=== PATIENT | female | born 1965 | race American Indian/Alaskan Native ===

== ENCOUNTER 2018-09-02 15:56 | Emergency (ER) | payer BC ==
[2018-09-02 15:59] VITALS: BMI 25.1
[2018-09-02] MEDS ORDERED: Sodium Chloride 0.9% 1,000 ML IV STA (16:27)
--- NOTE | 2018-09-02 16:57 | ED PDOC ---
Arrival/HPI - General Chief Complaint: Flu-like Symptoms Time Seen by Provider: 09/02/18 16:06 Historian: Patient - History of Present Illness Narrative History of Present Illness (Text): 09/02/18 16:20 53 year old female, whose past medical history includes pituitary tumor and hepatic cyst, presents to the emergency department complaining of fatigue, vomiting, myalgia and flu-like symptoms for the past 4 days. Patient day began to have back pain that progressively worsened to body aches. Patient then began having a productive cough with brownish/white sputum. Patient denies any blood in the sputum. She reports 3 episodes of vomiting. Patient reports sick contact at work where 2 people had the flu and states she did not get the flu shot. Patient was seen and discharged at [facility] yesterday with antinausea medication and pain medication with no relief. Patient reports she feels feverish, chills, nausea, cough, and chest pain after cough, but denies any shortness of breath, diarrhea, urinary symptoms, back pain, neck pain, headache, dizziness, or any other complaints. PMD: Dr. Puckett Time/Duration: Other (4 days) Symptom Onset: Gradual Symptom Course: Unchanged Activities at Onset: Light Context: Home Past Medical History - Provider Review Nursing Documentation Reviewed: Yes - Infectious Disease Hx of Infectious Diseases: None - Tetanus Immunization Tetanus Immunization: Unknown - Endocrine/Metabolic Hx Endocrine Disorders: Yes (benign Pituitary tumor) - Hematological/Oncological Hx Cancer: Yes (PITUITARY TUMOR) - Musculoskeletal/Rheumatological Hx Falls: No - Psychiatric Hx Depression: Yes Hx Substance Use: No - Surgical History Hx Appendectomy: Yes Hx Section: Yes (x 2) - Anesthesia Hx Anesthesia: Yes Hx Anesthesia Reactions: No Hx Malignant Hyperthermia: No - Suicidal Assessment Feels Threatened In Home Enviroment: No Family/Social History - Physician Review Nursing Documentation Reviewed: Yes Family/Social History: No Known Family HX Smoking Status: Former Smoker Hx Alcohol Use: No Hx Substance Use: No Hx Substance Use Treatment: No Allergies/Home Meds Allergies/Adverse Reactions: Allergies No Known Allergies Allergy (Verified 02/23/18 12:06) per patient Review of Systems - Physician Review All systems were reviewed & negative as marked: Yes - Review of Systems Constitutional: Fatigue, Fevers, Other (Chills) Respiratory: Cough. absent: SOB Cardiovascular: Chest Pain (worse with cough ) Gastrointestinal: Nausea, Vomiting. absent: Constipation, Diarrhea Genitourinary Female: absent: Dysuria, Frequency, Hematuria Musculoskeletal: Myalgias. absent: Back Pain, Neck Pain Neurological: absent: Headache, Dizziness Physical Exam - Physical Exam Narrative Physical Exam (Text): Gen: VS reviewed, alert, well developed, well nourished, nontoxic, mild distress. ENT: Dry mucus membranes. Erythema to the back of the throat. No exudates Eye: EOMI, PERRL. Neck: no JVD, supple, no adenopathy. CV: regular rate, regular rhythm, no rubs, no murmur, no gallops, S1, S2, pulses equal and strong. Pulm: Rales to the left lower lobe posteriorly, no distress, clear to auscultation, no wheeze, no rhonchi. Abd: soft, nontender, no guarding, no rebound, no rigidity, normal bowel sounds. Ext: no edema. Skin: good color, no rash, no cyanosis. Psych: responds appropriately to questions, normal affect. Neuro: oriented x 3, CN2-12 intact grossly, motor intact, sensation intact. Vital Signs Reviewed: Yes Vital Signs Temp Pulse Resp BP Pulse Ox 09/02/18 15:59 99.4 F 69 16 121/74 96 Temperature: Afebrile Blood Pressure: Normal Pulse: Regular Respiratory Rate: Normal Medical Decision Making ED Course and Treatment: 09/02/18 16:20 Impression: 53 year old female presents complaining of fatigue, nausea, vomiting, myalgia, cough, and flu-like symptoms for the past 4 days. Plan: -- EKG -- Labs -- Chest X-ray -- Zofran Inj, IV Fluid -- Reassess and disposition Progress Notes: 09/02/18 19:04 On re-evaluation, patient is in no acute distress. I have discussed the results and plan with the patient, who expresses understanding. Patient in agreement with plan to be discharged home with prescription for Motrin. Patient is stable for discharge. Patient was instructed to follow up with physician or return if symptoms worsen or new concerning symptoms arise. - Lab Interpretations I have reviewed the lab results: Yes - RAD Interpretation Narrative RAD Interpretations (Text): PROCEDURE: Chest X-ray Dictator : Chano Forbes MD Report Date : 09/02/2018 18:00:09 IMPRESSION: No active disease. Radiology Orders: 09/02/18 16:27 CXR [CHEST TWO VIEWS (PA/LAT)] [RAD] Stat Fur Joiner: Radiologist - EKG Interpretation EKG Interpretation (Text): 09/02/18 16:27 Sinus Bradycardia @ 56, nml qrs, nml axis, LVH, Interpreted by me. Interpreted by ED Physician: Yes Type: 12 lead EKG - Medication Orders Current Medication Orders: Sodium Chloride (Sodium Chloride 0.9%) 1,000 mls @ 999 mls/hr IV .Q1H1M STA Stop: 09/02/18 17:27 Discontinued Medications Ondansetron HCl (Zofran Inj) 4 mg IVP STAT STA Stop: 09/02/18 16:28 - Scribe Statement The provider has reviewed the documentation as recorded by the Hussain De Santiago Provider Scribe Attestation: All medical record entries made by the Scribe were at my direction and personally dictated by me. I have reviewed the chart and agree that the record accurately reflects my personal performance of the history, physical exam, medical decision making, and the department course for this patient. I have also personally directed, reviewed, and agree with the discharge instructions and disposition. Disposition/Present on Arrival - Present on Arrival Any Indicators Present on Arrival: No History of DVT/PE: No History of Uncontrolled Diabetes: No Urinary Catheter: No History of Decub. Ulcer: No History Surgical Site Infection Following: None - Disposition Have Diagnosis and Disposition been Completed?: Yes Diagnosis: Viral syndrome Disposition: HOME/ ROUTINE Disposition Time: 19:04 Patient Plan: Discharge Patient Problems: Current Active Problems Problem Status Onset Viral syndrome Acute Condition: STABLE Discharge Instructions (ExitCare): Viral Syndrome (DC) Additional Instructions: stay well hydrated (water). return for any new or worsening symptoms. follow up with your primary care doctor. Prescriptions: Ibuprofen [Motrin Tab] 600 mg PO QID #42 tab Ondansetron [Zofran] 4 mg PO Q8H #12 tab Forms: [facility] (Liberian), WORK NOTE
[2018-09-02 17:21] LABS: BASO # 0.01 K/mm3 (0.0-2.0); BASO % 0.3 % (0.0-3.0); GRAN # 1.4 (1.4-6.5); GRAN % 45.6 % (50.0-68.0); HEMOGLOBIN 11.8 g/dL (12.0-16.0); LYMPH # 1.4 (1.2-3.4); MEAN CELL VOLUME 88.7 fl (80.0-105.0); MEAN CORPUSCULAR HGB CONC 32.7 g/dl (31.0-37.0); MONO # 0.3 (0.1-0.6); MONO % 9.1 % (1.0-6.0); RBC 4.07 10^6/uL (3.5-6.1); RED CELL DISTRIBUTION WIDTH 13.3 % (11.5-14.5); WHITE BLOOD COUNT 3.1 10^3/uL (4.5-11.0)
[2018-09-02 17:33] LABS: ALB/GLOB RATIO 1.3 (1.1-1.8); ALBUMIN 4.1 g/dL (3.0-4.8); ALT/SGPT 34 U/L (7-56); AST/SGOT 42 U/L (14-36); BLOOD UREA NITROGEN 12 mg/dL (7-21); CALCIUM 9.3 mg/dL (8.4-10.5); GFR NON-AFRICAN AMERICAN > 60
--- NOTE | 2018-09-02 18:04 | RAD ---
Date of service: 09/02/2018 HISTORY: cough, pneumonia COMPARISON: 06/18/2014 TECHNIQUE: Chest PA and lateral FINDINGS: LUNGS: No active pulmonary disease. PLEURA: No significant pleural effusion identified. No pneumothorax apparent. CARDIOVASCULAR: No aortic atherosclerotic calcification present. Normal cardiac size. No pulmonary vascular congestion. OSSEOUS STRUCTURES: No significant abnormalities. VISUALIZED UPPER ABDOMEN: Normal. OTHER FINDINGS: None. IMPRESSION: No active disease.
[2018-09-02 19:24] VITALS: BP 127/84; PULSE 75; RESP 18; TEMP 98.8; O2SAT 100
--- NOTE | 2018-09-03 09:56 | CARD ---
APPROVED REPORT Date of service: 09/02/2018 EKG Measurement Heart [id number] CT 162P78 [id number] <Conclusion> Sinus bradycardia Septal infarct, age undetermined Abnormal ECG
== END 2018-09-02 19:21 | disposition home or self-care (01) ==
LOC: ED 15:56
DX: B34.9 Viral infection, unspecified (principal); Z87.891 Personal history of nicotine dependence
CPT/HCPCS: 71046; 80053; 85025; 93005; 96361; 96374; 99283; J2405; J7030

== ENCOUNTER 2018-09-06 14:47 | Inpatient (IN) | payer BC ==
[2018-09-06 14:51] VITALS: BMI 21.7
[2018-09-06] MEDS ORDERED: Sodium Chloride 0.9% 1,000 ML IV STA (15:47)
--- NOTE | 2018-09-06 17:12 | RAD ---
Date of service: 09/06/2018 HISTORY: cough r/o infiltrate COMPARISON: Chest radiograph dated 09/02/2018 FINDINGS: LUNGS: Lingular infiltrate. PLEURA: No significant pleural effusion identified, no pneumothorax apparent. CARDIOVASCULAR: No aortic atherosclerotic calcification present. Normal cardiac size. No pulmonary vascular congestion. OSSEOUS STRUCTURES: Unchanged. VISUALIZED UPPER ABDOMEN: Normal. OTHER FINDINGS: None. IMPRESSION: Lingula infiltrate.
[2018-09-06 17:18] LABS: BASO # 0.02 K/mm3 (0.0-2.0); BASO % 0.4 % (0.0-3.0); EOS # 0.1 (0.0-0.7); EOS % 1.8 % (1.5-5.0); GRAN # 1.89 (1.4-6.5); GRAN % 38.9 % (50.0-68.0); HEMOGLOBIN 11.9 g/dL (12.0-16.0); LYMPH # 2.3 (1.2-3.4); MEAN CELL VOLUME 87.5 fl (80.0-105.0); MEAN CORPUSCULAR HEMOGLOBIN 29.2 pg (25.0-35.0); MEAN CORPUSCULAR HGB CONC 33.3 g/dl (31.0-37.0); MEAN PLATELET VOLUME 9.4 fl (7.0-11.0); MONO # 0.6 (0.1-0.6); MONO % 11.9 % (1.0-6.0); RBC 4.08 10^6/uL (3.5-6.1); RED CELL DISTRIBUTION WIDTH 12.7 % (11.5-14.5); WHITE BLOOD COUNT 4.9 10^3/uL (4.5-11.0)
[2018-09-06 17:34] LABS: ALB/GLOB RATIO 1.2 (1.1-1.8); ALBUMIN 4.4 g/dL (3.0-4.8); ALT/SGPT 26 U/L (7-56); AST/SGOT 58 U/L (14-36); BLOOD UREA NITROGEN 12 mg/dL (7-21); GFR NON-AFRICAN AMERICAN > 60
[2018-09-06 17:40] LABS: TROPONIN I < 0.01 ng/mL
[2018-09-06] MEDS ORDERED: Azithromycin 250 MG in Sodium Chloride 0.9% 250 ML IVPB STA (18:02)
--- NOTE | 2018-09-06 19:14 | ED PDOC ---
Arrival/HPI - General Chief Complaint: Cough, Cold, Congestion Time Seen by Provider: 09/06/18 15:05 Historian: Patient - History of Present Illness Narrative History of Present Illness (Text): 09/06/18 19:14 A 53 year old female, whose past medical history includes pituitary tumor, sent by PMD to the emergency department for nausea/vomiting/cough/fever. Patient states she was at another hospital and was discharged. Patient notes also having decreased PO intake, however denies any diarrhea, or any other complaints at this time. Denies any recent travel. PMD: Dr. Puckett Past Medical History - Provider Review Nursing Documentation Reviewed: Yes - Infectious Disease Hx of Infectious Diseases: None - Tetanus Immunization Tetanus Immunization: Unknown - Reproductive Menopause: Yes - Cardiac Hx Cardiac Disorders: No - Neurological Hx Neurological Disorder: No - Endocrine/Metabolic Hx Endocrine Disorders: Yes (benign Pituitary tumor) - Hematological/Oncological Hx Cancer: Yes (PITUITARY TUMOR) - Musculoskeletal/Rheumatological Hx Falls: No - Psychiatric Hx Depression: Yes Hx Substance Use: No - Surgical History Hx Section: Yes (x 2) - Anesthesia Hx Anesthesia Reactions: No Hx Malignant Hyperthermia: No - Suicidal Assessment Feels Threatened In Home Enviroment: No Family/Social History - Physician Review Nursing Documentation Reviewed: Yes Family/Social History: No Known Family HX Smoking Status: Former Smoker Hx Alcohol Use: No Hx Substance Use: No Hx Substance Use Treatment: No Allergies/Home Meds Allergies/Adverse Reactions: Allergies No Known Allergies Allergy (Verified 02/23/18 12:06) per patient Review of Systems - Physician Review All systems were reviewed & negative as marked: Yes - Review of Systems Constitutional: Fevers Respiratory: Cough Gastrointestinal: Nausea, Vomiting, Appetite Changes (decreased PO intake). absent: Diarrhea Physical Exam Vital Signs Reviewed: Yes Vital Signs Temp Pulse Resp BP Pulse Ox 09/06/18 14:49 98.2 F 74 18 112/75 98 Temperature: Afebrile Blood Pressure: Normal Pulse: Regular Respiratory Rate: Normal Appearance: Positive for: Well-Appearing, Non-Toxic, Comfortable Pain Distress: None Mental Status: Positive for: Alert and Oriented X 3 - Systems Exam Head: Present: Atraumatic, Normocephalic Pupils: Present: PERRL Extroacular Muscles: Present: EOMI Conjunctiva: Present: Normal Mouth: Present: Dry Neck: Present: Normal Range of Motion Respiratory/Chest: Present: Clear to Auscultation, Good Air Exchange. No: Respiratory Distress, Accessory Muscle Use Cardiovascular: Present: Regular Rate and Rhythm, Normal S1, S2. No: Murmurs Abdomen: No: Tenderness, Distention, Peritoneal Signs Back: Present: Normal Inspection Upper Extremity: Present: Normal Inspection. No: Cyanosis, Edema Lower Extremity: Present: Normal Inspection. No: Edema Neurological: Present: GCS=15, CN II-XII Intact, Speech Normal Skin: Present: Warm, Dry, Normal Color. No: Rashes Psychiatric: Present: Alert, Oriented x 3, Normal Insight, Normal Concentration Medical Decision Making ED Course and Treatment: 09/06/18 19:16 Impression: 53 year old female with nausea/vomiting/cough/fever. Physical exam shows dry mucous membranes; otherwise exam is unremarkable. Plan: -- EKG -- Chest X-ray -- Labs -- IV Fluids -- Blood Culture -- Urine Culture -- Urinalysis -- Influenza AB Test -- Reassess and disposition Progress Notes: EKG: Ordered, reviewed, and independently interpreted the EKG. Rate : 58 BPM Rhythm : Sinus tachycardia. Interpretation : No ST-segment elevations or depressions, no T-wave inversions, normal intervals. Comparison : No previous EKG for comparison. 09/06/2018 17:07 Chest X-ray IMPRESSION: Lingula infiltrate. Dictator: Augusto Magana MD 09/06/18 17:[address] Puckett, reviewed findings, and agrees to have patient admitted for community acquired pneumonia. - Lab Interpretations Lab Results: Troponin I < 0.01 ng/mL 09/06/18 17:12 Total Bilirubin 0.6 mg/dL (0.2-1.3) 09/06/18 17:12 AST 58 U/L (14-36) H D 09/06/18 17:12 ALT 26 U/L (7-56) 09/06/18 17:12 Alkaline Phosphatase 73 U/L (38-126) 09/06/18 17:12 Total Protein 8.0 g/dL (5.8-8.3) 09/06/18 17:12 Albumin 4.4 g/dL (3.0-4.8) 09/06/18 17:12 Globulin 3.7 gm/dL 09/06/18 17:12 Albumin/Globulin Ratio 1.2 (1.1-1.8) 09/06/18 17:12 I have reviewed the lab results: Yes - RAD Interpretation Radiology Orders: 09/06/18 15:46 CHEST PORTABLE [RAD] Stat - Medication Orders Current Medication Orders: Ceftriaxone Sodium (Rocephin 1 Gram Ivpb) 1 gm in 100 mls @ 100 mls/hr IVPB DAILY MIGUEL; Protocol Azithromycin 250 mg/ Sodium (Chloride) 250 mls @ 167 mls/hr IVPB STAT STA; Protocol Stop: 09/06/18 19:31 Last Admin: 09/06/18 18:55 Dose: 167 mls/hr eMAR Start Stop Document 09/06/18 18:55 MR (Rec: 09/06/18 18:55 [id number]) Intravenous Solution Start Date 09/06/18 Start Time 18:55 Discontinued Medications Sodium Chloride (Sodium Chloride 0.9%) 1,000 mls @ 999 mls/hr IV .Q1H1M STA Stop: 09/06/18 16:47 Last Admin: 09/06/18 17:06 Dose: 999 mls/hr eMAR Start Stop Document 09/06/18 17:06 MR (Rec: 09/06/18 17:06 [id number]) Intravenous Solution Start Date 09/06/18 Start Time 17:06 End Date 09/06/18 End time 18:06 Total Infusion Time 60 Ondansetron HCl (Zofran Inj) 4 mg IVP STAT STA Stop: 09/06/18 18:40 Last Admin: 09/06/18 18:55 Dose: 4 mg IVP Administration Document 09/06/18 18:55 MR (Rec: 09/06/18 18:55 [id number]) Charges for Administration # of IVP Administrations 1 - Scribe Statement The provider has reviewed the documentation as recorded by the Hussain Gibbs Provider Scribe Attestation: All medical record entries made by the Scribe were at my direction and personally dictated by me. I have reviewed the chart and agree that the record accurately reflects my personal performance of the history, physical exam, medical decision making, and the department course for this patient. I have also personally directed, reviewed, and agree with the discharge instructions and disposition. Disposition/Present on Arrival - Present on Arrival Any Indicators Present on Arrival: No History of DVT/PE: No History of Uncontrolled Diabetes: No Urinary Catheter: No History of Decub. Ulcer: No History Surgical Site Infection Following: None - Disposition Have Diagnosis and Disposition been Completed?: Yes Diagnosis: Community acquired pneumonia Disposition: HOSPITALIZED Disposition Time: 17:15 Condition: STABLE
--- NOTE | 2018-09-07 00:33 | CARD ---
APPROVED REPORT Date of service: 09/06/2018 EKG Measurement Heart [id number] IN 166P64 [id number] <Conclusion> Sinus bradycardia with sinus arrhythmia Poor R wave progression V1-3. Cannot exclude old ASMI CCR Otherwise normal ECG
[2018-09-07] MEDS ORDERED: Influenza Vaccine 60 mcg/0.5 mL SYR (4YR UP) IM ONE (01:34)
[2018-09-07] MEDS ORDERED: Pneumococcal 23-Valent Vaccine IM ONE (01:34)
[2018-09-07] MEDS: Albuterol-Ipratrop 3 mg / 0.5 (3 ml) UD IH SCH ×4 (02:22→21:30)
[2018-09-07] MEDS ORDERED: cefTRIAXone 1 gm 1 GM/100 ML BAG IVPB SCH (10:00)
[2018-09-07] MEDS ORDERED: Azithromycin 500 MG in Sodium Chloride 0.9% 250 ML IVPB SCH (10:00)
[2018-09-07] MEDS: Azithromycin 500MG/NS 250ml 500 MG/250 ML BAG IVPB SCH (10:20)
[2018-09-07] MEDS: cefTRIAXone 1 gm 1 GM/100 ML BAG IVPB SCH (10:20)
--- NOTE | 2018-09-07 13:07 | CON ---
DATE: 09/07/2018 PULMONARY CONSULTATION NOTE REFERRING PHYSICIAN: Marlin Puckett MD REASON FOR CONSULTATION: Shortness of breath, cough and infiltrate on chest x-ray. HISTORY OF PRESENT ILLNESS: This is a 53-year-old female who was sent by primary physician to the emergency room due to nausea, vomiting, cough, and fever. The patient states that she had went to another hospital, but was discharged home. The patient reports that she has been having symptoms for about one week. States also that she has had decreased appetite. Today, she reports having cough, sputum production and some shortness of breath. PAST MEDICAL HISTORY: Pituitary tumor, high cholesterol. SOCIAL HISTORY: Former smoker, quit about 30 years ago. No EtOH abuse. No illicit drug use. ALLERGIES: NO KNOWN ALLERGIES. FAMILY HISTORY: No cardiopulmonary disease reported. MEDICATIONS: Tylenol 650 mg every 4 hours p.r.n., DuoNeb 3 mL inhalation every 6 hours, Zithromax 500 mg daily, Rocephin 1 g daily, Pepcid 40 mg at bedtime and Zofran 4 mg every 8 hours. REVIEW OF SYSTEMS: The patient reports having with sputum production, shortness of breath. No headache, rhinitis, chest pain, abdominal pain, nausea, vomiting, diarrhea, leg pain or leg swelling reported. PHYSICAL EXAMINATION GENERAL: No acute distress. VITAL SIGNS: Blood pressure 125/77, pulse 65, temperature 98.4 and oxygen saturation 96% on room air. HEENT: Moist mucous membranes. Mallampati score of 4. Nontender sinuses upon palpation. NECK: Supple. No JVD. RESPIRATORY: Diminished breath sounds at the bases. CARDIOVASCULAR: S1 and S2. ABDOMEN: Soft and nontender. No distension. No organomegaly. EXTREMITIES: No bilateral lower extremity edema. NEUROLOGIC: Awake, alert and verbal. Follows commands. LABORATORY DATA: Reviewed. WBC 4.9, RBC 4.08, hemoglobin 11.9, hematocrit 35.7 and platelets 260. Sodium 140, potassium 3.8, chloride 101, carbon dioxide 29, anion gap 14, BUN 12, creatinine 0.7, GFR greater than 60, random glucose 84, calcium 10, total bilirubin 0.6, AST , ALT 26, alkaline phosphatase 73, troponin less than 0.01, total protein 8, albumin 4.4, globulin 3.7 and albumin-globulin ratio 1.2. Influenza type A and B negative. Chest x-ray showed lingular infiltrate. Electrocardiogram showed sinus bradycardia with sinus arrhythmia. IMPRESSION AND PLAN: Infiltrates, possible pneumonia, we will procalcitonin level. We will order CT scan without contrast of the chest, due to the patient's history of being an ex-smoker. Continue antibiotic therapy. Continue inhaled bronchodilator. We will add Tessalon Perles for cough. We will add Mucomyst and Pulmicort. We will place the patient on Lovenox for deep venous thrombosis prophylaxis. Continue Pepcid for gastric prophylaxis. The patient will need full pulmonary function test as outpatient. This patient was seen and examined with Dr. Major. Discussed assessment and plan as described above. Thank you for this consult and we will follow with you. Lit Agarwal APN Antonietta Major MD
--- NOTE | 2018-09-07 16:00 | CT ---
Date of service: 09/07/2018 PROCEDURE: CT Chest without contrast HISTORY: former smoker; evaluate infiltrate COMPARISON: None available. TECHNIQUE: Contiguous axial images were obtained through the chest without intravenous contrast enhancement. Sagittal and coronal reconstructions were performed. Radiation dose: Total exam DLP = 169.2 mGy-cm. This CT exam was performed using one or more of the following dose reduction techniques: Automated exposure control, adjustment of the mA and/or kV according to patient size, and/or use of iterative reconstruction technique. FINDINGS: LUNGS: There is a dense irregular area of consolidation at the left lung base. There is a linear area of consolidation in the right middle lobe. Patchy interstitial infiltrates are seen in the superior segment of the right upper lobe and left perihilar region. Findings are consistent with multi focal pneumonia. MEDIASTINUM: Unremarkable thoracic aorta. No aneurysm. Normal sized heart. Main pulmonary artery unremarkable. No vascular congestion. No lymphadenopathy. No aortic atherosclerotic calcification. PLEURA: No pleural fluid. No pneumothorax. BONES: No fracture. No destructive lesion. UPPER ABDOMEN: Grossly unremarkable. OTHER FINDINGS: None. IMPRESSION: There is a dense irregular area of consolidation at the left lung base. There is a linear area of consolidation in the right middle lobe. Patchy interstitial infiltrates are seen in the superior segment of the right upper lobe and left perihilar region. Findings are consistent with multi focal pneumonia.
[2018-09-07] MEDS: Budesonide 0.5 mg/2 ml Inhal Susp UD IH SCH (21:30)
[2018-09-07] MEDS: Acetylcysteine 20% Inhal Soln (4ml) IH SCH (21:30)
--- NOTE | 2018-09-08 01:04 | HP ---
DATE OF EXAM: 09/07/2018 The patient is 53-year-old female. CHIEF COMPLAINT: Cough, cold, congestion. HISTORY OF PRESENT ILLNESS: Ms. Celeste Sarkar, 53-year-old my private patient has history of pituitary tumor came in my office complaining of shortness of breath, feeling very fatigued and tired with dyspnea. I had sent her to [facility] emergency room. The patient states she came to [facility] emergency room, they discharged her. After that, she went to [facility] emergency room, they discharged her. [facility] Finally, she came in my office and I had sent her to emergency room for admission. Chest x-ray done showed the patient had pneumonia, antibiotics given. Pulmonary consult called. Even after first dose of antibiotics, the patient started feeling better. PAST MEDICAL HISTORY: Benign pituitary tumor, depression, section. FAMILY HISTORY: Father and mother, noncontributory. HABITS: Former smoker. No smoking. No drugs. No ethanol. ALLERGIES: THE PATIENT IS NOT ALLERGIC WITH ANY MEDICATIONS. REVIEW OF SYSTEMS: The patient was seen and examined at the bedside. Partner was sitting on the bedside also. Coughing little bit better. Shortness of breath is little bit better. No hematuria or hematochezia. No swelling of the legs. No chest pain. No palpitations. PHYSICAL EXAMINATION VITAL SIGNS: Temperature 98.6, pulse 55, blood pressure 117/75, respiratory rate 20. HEENT: Head is normocephalic and atraumatic. Eyes, PERRLA. Extraocular muscles are intact. Conjunctivae clear. Nose patent. NECK: Supple. No carotid bruits, JVD, or thyromegaly. CHEST: Bilaterally symmetrical. HEART: S1 and S2 positive. LUNGS: Clear to auscultation. ABDOMEN: Soft. Bowel sounds present. No organomegaly. EXTREMITIES: No edema. No cyanosis. NEUROLOGIC: The patient is awake, alert, moving all four extremities. No focal deficits. LABORATORY DATA: White blood cells 4.9, hemoglobin 11.9, hematocrit 35.7, platelets 260. Sodium 140, potassium 3.8, BUN 12, creatinine 0.7, AST 58. Influenza type A and B is negative. ASSESSMENT AND PLAN: Ms. Celeste Sarkar is 53-year-old lady with anemia, abnormal liver function test with history of pituitary gland,, hypercholesterolemia came in my office with shortness of breath, chest pain, coughing, fatigue, and tired, failed outpatient treatment. Went two hospital ERs and [facility]. Has multilobar pneumonia. I admitted the patient. Appreciated CAT scan of the chest. Continue inhaled bronchodilator. Dr. Major added Chante San. Length of time discussion done with patient's partner. All questions answered. Gastrointestinal and deep venous thrombosis prophylaxis. Repeat labs. We will followup. Marlin Puckett MD MTDD
[2018-09-08] MEDS: Albuterol-Ipratrop 3 mg / 0.5 (3 ml) UD IH SCH ×3 (07:45→20:41)
[2018-09-08] MEDS: Acetylcysteine 20% Inhal Soln (4ml) IH SCH ×3 (07:45→20:40)
[2018-09-08] MEDS: Budesonide 0.5 mg/2 ml Inhal Susp UD IH SCH ×2 (07:46→20:41)
[2018-09-08 08:05] LABS: HEMOGLOBIN 11.5 g/dL (12.0-16.0); MEAN CORPUSCULAR HEMOGLOBIN 28.1 pg (25.0-35.0); MEAN CORPUSCULAR HGB CONC 32.3 g/dl (31.0-37.0); MEAN PLATELET VOLUME 9.5 fl (7.0-11.0); RBC 4.09 10^6/uL (3.5-6.1); RED CELL DISTRIBUTION WIDTH 12.7 % (11.5-14.5); WHITE BLOOD COUNT 5.4 10^3/uL (4.5-11.0)
[2018-09-08 08:10] LABS: IRON 58 ug/dL (45-180)
[2018-09-08 08:20] LABS: % IRON SATURATION 21 % (20-55); TOTAL IRON BINDING CAPACITY 280 ug/dL (265-497)
[2018-09-08 08:26] LABS: BLOOD UREA NITROGEN 8 mg/dL (7-21); CALCIUM 10.2 mg/dL (8.4-10.5); GFR NON-AFRICAN AMERICAN > 60; HDL CHOLESTEROL 51 mg/dL (29-60)
[2018-09-08 08:36] LABS: LDL CHOLESTEROL 146 mg/dL (0-129)
[2018-09-08] MEDS: cefTRIAXone 1 gm 1 GM/100 ML BAG IVPB SCH (09:34)
[2018-09-08] MEDS: Azithromycin 500MG/NS 250ml 500 MG/250 ML BAG IVPB SCH (09:35)
[2018-09-08] MEDS: Enoxaparin 40 mg Syringe SC SCH (09:42)
--- NOTE | 2018-09-08 10:32 | PN ---
DATE: 09/08/2018 REFERRING PHYSICIAN: Marlin Puckett MD SUBJECTIVE: Patient is lying in bed, in no acute distress. No overnight events reported. The patient reports that shortness of breath is better, but still has cough. No headache, rhinitis, chest pain, abdominal pain, nausea, vomiting, diarrhea, leg pain, or leg swelling reported. OBJECTIVE: GENERAL: No acute distress. VITAL SIGNS: Blood pressure 118/73, pulse 61, temperature 98, oxygen saturation 100% on room air. HEENT: Moist mucous membranes. Mallampati score of 4. NECK: Supple. No JVD. RESPIRATORY: Few rhonchi bilaterally. CARDIOVASCULAR: S1 and S2 audible. ABDOMEN: Soft and nontender. No distention. No organomegaly. EXTREMITIES: No bilateral lower extremity edema. NEUROLOGIC: Awake, alert, and verbal. Follows commands. MEDICATIONS: Reviewed; Tylenol 650 mg every 4 hours p.r.n., Mucomyst 4 mL inhalation twice a day, Duoneb 3 mL inhalation every 6 hours, Zithromax 500 mg daily, Tessalon Perles 100 mg three times a day, Pulmicort 0.5 mg every 12 hours, Rocephin 1 g daily, Lovenox 40 mg subcu daily, Pepcid 40 mg at bedtime, Zofran 4 mg every 6 hours. LABORATORY DATA: Reviewed. WBC 5.4, RBC 4.09, hemoglobin 11.5, hematocrit 35.6 and platelets 197. Sodium 139, potassium 4.2, chloride 105, carbon dioxide 25, anion gap 10, BUN 8, creatinine 0.8, GFR greater than 60, random glucose 95, calcium 10.2. Iron 58, TIBC 280 and percent saturation 21. Triglycerides 101, cholesterol 251, LDL cholesterol direct 146 and HDL cholesterol 51. Procalcitonin less than 0.05. TSH 0.86. Blood culture preliminary, no growth after 24 hours. DIAGNOSTIC DATA: Chest CT shows dense,irregular area of consolidation of left lung base, linear area of consolidation right middle lobe, patchy interstitial infiltrates in the superior segment of right upper lobe and left perihilar region. IMPRESSION AND PLAN: The patient with multifocal infiltrates, procalcitonin negative; however, we will order a consult with Infectious Disease. We will order lab work such as sedimentation rate, HIV, C-reactive protein, rheumatoid factor, EVITA, urine for legionella, mycoplasma, IGM, IGG. Continue antibiotic therapy and inhaled bronchodilators. Continue Tessalon Perles for cough. Continue Lovenox for deep venous thrombosis prophylaxis, gastric prophylaxis. The patient will need full pulmonary function test as outpatient. This patient was seen and examined with Dr. Major. Discussed assessment and plan as described above. Thank you for this consult. We will follow with you. Lit Agarwal APN Antonietta Major MD
[2018-09-08 21:23] LABS: URINE APPEARANCE CLEAR (CLEAR); URINE BILIRUBIN NEGATIVE (NEGATIVE); URINE BLOOD NEGATIVE (NEGATIVE); URINE COLOR YELLOW (YELLOW); URINE GLUCOSE (UA) NEGATIVE (NEGATIVE); URINE LEUKOCYTE ESTERASE NEGATIVE Leu/uL (NEGATIVE); URINE PROTEIN NEGATIVE mg/dL (<30 mg/dL); URINE UROBILINOGEN 0.2 E.U./dL (<1 E.U./dL)
--- NOTE | 2018-09-08 22:29 | CON ---
DATE: 09/08/2018 LOCATION: The patient is seen in room 573, bed 3. CHIEF COMPLAINT: Weakness times several days. HISTORY OF PRESENT ILLNESS: This is a 53-year-old female with history of pituitary tumor with depression, high cholesterol. The patient has pituitary tumor, is being followed up by Endocrine by imaging and treatment, and the patient has been having pulmonary symptoms, was seen as outpatient, was told that the influenza test as outpatient negative, but had viral illness, continued to deteriorate and eventually was admitted. The patient states she is feeling much better and she did have a fever of 105 at home, and no nausea or vomiting now. She is much improved. She has some epigastric discomfort, which is resolved. REVIEW OF SYSTEMS: Reveals a 12-point review of systems performed. PAST MEDICAL HISTORY: Significant for pituitary tumor, depression, high cholesterol. PAST SURGICAL HISTORY: Includes x3. ALLERGIES: THE PATIENT HAS NO KNOWN ALLERGIES. MEDICATIONS AT HOME: Include the patient was taking Motrin and Flexeril. PHYSICAL EXAMINATION GENERAL: On exam, the patient is in bed. VITAL SIGNS: Temperature of 98, heart rate of 71, respiratory rate 20, blood pressure 117/70. HEENT: Unremarkable. NECK: Supple. LUNGS: Decreased breath sounds. HEART: Normal S1 and S2. ABDOMEN: Soft and nontender. LABORATORY EXAMINATION: Reveals white count of 4.9, hemoglobin of 11, 38% granulocytosis. Chemistries are noted. The procalcitonin is normal. Serology reveals HIV 1 and 2 is negative, influenza is negative. Chest x-ray is positive. Urine culture is positive, but no urinalysis available. Urine culture is positive for corynebacterium. The patient denies any dysuria or frequency, any urinary symptoms at all. ASSESSMENT AND PLAN: This is a 53-year-old female with no travel history, has no exposure to animals, no exposure to tuberculosis, has no children at home. She is in lesbian relationship who is not having any acute pulmonary symptoms, now presenting with a community-acquired pneumonia and asymptomatic urinary tract infection, currently on Rocephin and azithromycin, maybe able to finish with p.o. azithromycin pending initial workup results. Thus far, blood cultures are negative. HIV fourth generation will be ordered. Legionella will be ordered, repeat procalcitonin will be ordered, and we will follow with you. Sagar Henderson MD
--- NOTE | 2018-09-09 00:18 | PN ---
DATE: 09/08/2018 SUBJECTIVE: The patient is a 53-year-old female. The patient was seen and examined at the bedside on 09/08/2018, looking comfortable. Has history of whole day headache, I have to give her tramadol and sinuses was heavy congested, I gave her Singulair and Claritin. Reports shortness of breath after coughing. The patient has a history of pituitary tumor, having abdominal pain especially in the left lower quadrant. Seen by the ID and Pulmonary. PHYSICAL EXAMINATION: VITAL SIGNS: Blood pressure 118/70, pulse 60, temperature 98, and oxygen saturating 100% on room air. HEENT: Head is normocephalic and atraumatic. Eyes; PERRLA. Extraocular muscles are intact. Conjunctivae clear. Nose patent. Mucous membranes moist. NECK: Supple. No carotid bruits, JVD, or thyromegaly. CHEST: Bilaterally symmetrical. HEART: S1 and S2 positive, audible. LUNGS: Few rhonchi bilaterally. ABDOMEN: Soft. No organomegaly. EXTREMITIES: No edema. No cyanosis. NEUROLOGIC: Awake, alert, and follow simple commands. MEDICATIONS: Tylenol, Mucomyst, DuoNeb, Zithromax, Tessalon Perles, Pulmicort, Rocephin, Lovenox, Pepcid, and Zofran. LABORATORY DATA: White blood cell 5.4, hemoglobin 11.5, hematocrit 35.6, and platelets 196. Sodium 139, potassium 4.2, BUN 8, creatinine 0.8, and triglyceride 101. ASSESSMENT AND PLAN: Ms. Celeste Sarkar is a 53-year-old my private patient with history of anemia and hypercholesterolemia. Blood cultures, no growth. CAT scan of the chest done shows dense irregular area of consolidation at the left lung base, linear area of the consolidation at the right middle lobe, patchy interstitial infiltrate in the superior segment of the right upper lobe and left perihilar region and has multifocal infiltrates. Infectious Disease is on the case. Human immunodeficiency virus, C-reactive, sedimentation rate, and rheumatic factor ordered. Continue antibiotics and inhaled bronchodilators, Tessalon Perles given. Getting Lovenox for gastrointestinal prophylaxis and getting gastric prophylaxis. The patient has a history of pituitary tumor. Today was having intractable headache, Tylenol was not helping, I have to give her tramadol and was feeling sinus is heavy, I gave her Singulair and Claritin and ordered MRI of the head to see the size of the pituitary tumor. Has history of abdominal pain and some time even no abdominal pain. Ordered CAT scan of the abdomen, actually CAT scan is done, results are pending. Review Dr. Henderson's notes, he ordered human immunodeficiency virus test. We will follow up. Marlin Puckett MD
[2018-09-09] MEDS: Albuterol-Ipratrop 3 mg / 0.5 (3 ml) UD IH SCH ×4 (01:17→19:41)
[2018-09-09] MEDS: Budesonide 0.5 mg/2 ml Inhal Susp UD IH SCH ×2 (07:15→19:41)
[2018-09-09] MEDS: Acetylcysteine 20% Inhal Soln (4ml) IH SCH ×2 (07:17→19:41)
[2018-09-09] MEDS: cefTRIAXone 1 gm 1 GM/100 ML BAG IVPB SCH (09:16)
[2018-09-09] MEDS: Enoxaparin 40 mg Syringe SC SCH (09:18)
--- NOTE | 2018-09-09 09:43 | PN ---
DATE: 09/09/2018 PULMONARY PROGRESS NOTE REFERRING PHYSICIAN: Marlin Puckett MD SUBJECTIVE: The patient is lying in bed. No acute distress. No overnight events reported. The patient reports improvement in cough today. States that she is feeling better today. No headache, rhinitis, chest pain, abdominal pain, nausea, vomiting, diarrhea, leg pain, or leg swelling reported. Reports improvement in shortness of breath as well. OBJECTIVE: GENERAL: No acute distress. VITAL SIGNS: Blood pressure 110/70, pulse 67, temperature 98.4, and oxygen saturation 97% on room air. HEENT: Moist mucous membranes. NECK: Supple. No JVD. RESPIRATORY: Few rhonchi bilaterally. CARDIOVASCULAR: S1 and S2 audible. ABDOMEN: Soft and nontender. No distention. No organomegaly. EXTREMITIES: No bilateral lower extremity edema. NEUROLOGIC: Awake, alert, and verbal. Follows commands. MEDICATIONS: Reviewed. Tylenol 650 mg every 4 hours p.r.n., Mucomyst 4 mL inhalation twice a day, Duoneb 3 mL inhalation every 6 hours, Zithromax 500 mg daily, Tessalon Perles 100 mg three times a day, Pulmicort 0.5 mg inhalation every 12 hours, Rocephin 1 g daily, Lovenox 40 mg subcu daily, Pepcid 40 mg at bedtime, Claritin 10 mg daily, Singulair 10 mg at bedtime, and Zofran 4 mg every 8 hours. LABORATORY DATA: Reviewed. C-reactive protein less than 5. HIV 1 & 2 antibody screen negative. Urine culture positive for Corynebacterium species. Blood cultures preliminary, no growth after [address]. Abdomen and pelvis CT report pending. IMPRESSION AND PLAN: The patient with multifocal infiltrates and negative procalcitonin level. Rheumatoid factor, EVITA, urine for legionella, mycoplasma, IgM, IgG pending. Continue antibiotic therapy and inhaled bronchodilators. Continue cough suppressant. Continue deep venous thrombosis prophylaxis and gastric prophylaxis. Continue followup with Infectious Disease. We will order chest x-ray PA and lateral for tomorrow morning. The patient will need full pulmonary function test as outpatient. Seen and examined with Dr. Major. Discussed assessment and plan as described above. Thank you for this consult. We will follow with you. Lit Agarwal APN Antonietta Major MD [facility] # [id number] [facility]ITAL[facility]arlyn
--- NOTE | 2018-09-09 10:49 | CT ---
Date of service: 09/08/2018 PROCEDURE: CT Abdomen and Pelvis without intravenous contrast HISTORY: abd pain COMPARISON: Comparison is made to the previous study dated 08/10/2013 TECHNIQUE: Axial and reformatted coronal and sagittal CT images of the abdomen and pelvis were obtained without IV or oral contrast administration.. Contrast dose: 0 Radiation dose: Total exam DLP = 293.4 mGy-cm. This CT exam was performed using one or more of the following dose reduction techniques: Automated exposure control, adjustment of the mA and/or kV according to patient size, and/or use of iterative reconstruction technique. FINDINGS: LOWER THORAX: Airspace consolidation at the left lung lower lobe associated with slight bronchiectasis may represent pneumonia or atelectasis or less likely scar tissue. There are also small opacities at the right middle lobe noted. No evidence of pleural effusion or cardiomegaly. LIVER: The liver is mildly enlarged. Again noted is low-attenuation lesion at central portion of the liver measures 1.7 centimeter. GALLBLADDER AND BILE DUCTS: Unremarkable. PANCREAS: Unremarkable. No gross lesion or ductal dilatation. SPLEEN: Unremarkable. ADRENALS: Unremarkable. No mass. KIDNEYS AND URETERS: Unremarkable. No hydronephrosis. No solid mass. VASCULATURE: Unremarkable. No aortic aneurysm. Small foci of atherosclerotic calcification are noted in the abdominal aorta. BOWEL: Unremarkable. No obstruction. No gross mural thickening. The rectum is mildly distended. There is mild constipation noted in the distal large bowel P APPENDIX: No evidence of appendicitis. PERITONEUM: Unremarkable. No free fluid. No free air. LYMPH NODES: Unremarkable. No enlarged lymph nodes. BLADDER: The urinary bladder is not distended therefore cannot be evaluated. REPRODUCTIVE: The uterus and adnexa are not visualized. BONES: No acute fracture. OTHER FINDINGS: There is low-attenuation cystic structure noted in the mid abdomen to the right of the midline measures 4.2 centimeter in the transverse diameter and 2.1 centimeter in the AP diameter. IMPRESSION: Foci of airspace opacities in the left lower lobe and right middle lobe noted may represent infectious process versus atelectasis. Clinical correlation is suggested. Low-attenuation cystic structure noted in the mid abdomen to the right of the midline of uncertain etiology. The differential consideration includes but not limited to postsurgical seroma versus mesenteric cyst versus less likely loculated ascites. This cystic structure was not seen in the previous exam. Mild constipation. Preliminary report contains concordant findings was submitted by [facility] Rad[facility].
--- NOTE | 2018-09-09 18:04 | PN ---
DATE: 09/09/2018 SUBJECTIVE: The patient is seen in bed earlier today in 573, bed 3. She is doing much better and symptoms have improved. PHYSICAL EXAMINATION: VITAL SIGNS: On exam, temperature is 98, blood pressure is 119/70, respiratory rate of 18. HEENT: Unremarkable. NECK: Supple. CARDIOPULMONARY: Normal S1, S2. LUNGS: Have decreased breath sounds. ABDOMEN: Soft. LABORATORY DATA: Reveals a white count of 5.4. Sed rate is 30. Chemistries are noted and urinalysis is noted. HIV is negative. Urine culture is bacteria and the blood cultures are negative. The patient had a CAT scan of the abdomen and pelvis. picked up a right middle lobe pneumonia. Dr. Puckett's note is reviewed. ASSESSMENT AND PLAN: This is a 53-year-old admitted with a community-acquired pneumonia, asymptomatic urinary tract infection on Rocephin, Zithromax, and appears to be improving. We will check on final results. Sagar Henderson MD
--- NOTE | 2018-09-09 18:16 | MRI ---
Date of service: 09/09/2018 PROCEDURE: MRI BRAIN WITHOUT CONTRAST HISTORY: pituitary tumor COMPARISON: None available. TECHNIQUE: Multiplanar, multisequence MR images of the brain were obtained without intravenous contrast enhancement. Thin cuts coronal and sagittal MRI images through the middle fossa and pituitary gland were also obtained without contrast administration. FINDINGS: HEMORRHAGE: None DWI: No evidence of an acute or early subacute infarction. BRAIN PARENCHYMA: No mass effect or edema. No atrophy or chronic microvascular ischemic changes. VENTRICLES: Unremarkable. No hydrocephalus. CRANIUM: Unremarkable. ORBITS: Grossly unremarkable. PARANASAL SINUSES/MASTOIDS: Clear VASCULAR SYSTEM: Skull base flow voids intact. OTHER FINDINGS: The pituitary gland is enlarged measures 10.9 millimeter in the longitudinal diameter. The pituitary gland abuts the optic chiasm without evidence of significant compression or deviation of the optic chiasm and infundibulum. 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 No evidence of acute pathology in the brain parenchyma.
[2018-09-10] MEDS: Albuterol-Ipratrop 3 mg / 0.5 (3 ml) UD IH SCH ×3 (01:23→13:47)
--- NOTE | 2018-09-10 04:20 | PN ---
DATE: 09/09/2018 SUBJECTIVE: The patient is a 53-year-old female. The patient was seen and examined at the bedside on 09/09/2018, looking comfortable. No fever. No chills. No hematuria. No hematochezia. No headache. No dizziness. No chest pain. No palpitations. Feeling better. PHYSICAL EXAMINATION: VITAL SIGNS: Blood pressure 120/70, pulse 67, temperature 98.6, oxygen saturation 97% on room air. HEENT: Head is normocephalic, atraumatic. Eyes; PERRLA. Extraocular muscles intact. Conjunctivae clear. Nose patent. Mucous membranes moist. NECK: Supple. No carotid bruits. No JVD. No thyromegaly. CHEST: Bilateral symmetrical. HEART: S1, S2 positive. LUNGS: Clear to auscultation. ABDOMEN: Soft. Positive bowel sounds. No organomegaly. EXTREMITIES: No edema. No cyanosis. NEUROLOGIC: The patient is awake and alert. Follows simple commands. MEDICATIONS: Tylenol, Mucomyst, Duoneb, Zithromax, Tessalon, Pulmicort, Rocephin, Lovenox, Pepcid, Claritin, Singulair, Zofran. LABORATORY DATA: HIV-1 and 2 antibody screen negative. Blood urine positive for Corynebacterium species. Blood cultures preliminary, no growth 48 hours. ASSESSMENT AND PLAN: Ms. Celeste Sarkar is a 53-year-old lady with multifocal infiltrates in the lungs and negative prolactin level, rheumatoid factor, antinuclear antibody, urine for Legionella, Mycoplasma, and immunoglobulin G pending. Continue antibiotics and inhaled bronchodilators. Sinusitis, the patient gets antibiotics, Singulair, Zyrtec and nasal spray. Continue cough suppressant. Continue gastric and deep venous thrombosis prophylaxis, history of pituitary tumor. Plan for CAT scan of the abdomen and pelvis noted by me. Gastric and deep venous thrombosis prophylaxis. Seen by Dr. Major and Dr. Henderson. Brain MRI is done also, reviewed by me. The pituitary gland is enlarged, measuring 10.9 mm in the longest diameter. 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 No evidence of acute pathology in the brain parenchyma. The patient is getting antibiotics as per Infectious disease. Gastrointestinal and deep venous thrombosis prophylaxis. Repeat labs. We will follow up. Marlin Puckett MD
[2018-09-10] MEDS: Budesonide 0.5 mg/2 ml Inhal Susp UD IH SCH (07:37)
[2018-09-10] MEDS: Acetylcysteine 20% Inhal Soln (4ml) IH SCH (07:37)
[2018-09-10 09:28] VITALS: O2SAT 98
--- NOTE | 2018-09-10 10:14 | RAD ---
Date of service: 09/10/2018 HISTORY: follow up infiltrates COMPARISON: Comparison made with prior chest radiograph 09/06/2018. TECHNIQUE: Chest PA and lateral FINDINGS: LUNGS: Previously noted atelectasis and/or infiltrate changes left lung base and to a lesser degree right middle lobe presumably have improved. PLEURA: No significant pleural effusion identified. No pneumothorax apparent. CARDIOVASCULAR: No aortic atherosclerotic calcification present. Normal cardiac size. No pulmonary vascular congestion. OSSEOUS STRUCTURES: No significant abnormalities. VISUALIZED UPPER ABDOMEN: Normal. OTHER FINDINGS: None. IMPRESSION: Previously noted atelectasis and/or infiltrate changes left lung base and to a lesser degree right middle lobe presumably have improved.
[2018-09-10] MEDS: cefTRIAXone 1 gm 1 GM/100 ML BAG IVPB SCH (11:07)
[2018-09-10] MEDS: Enoxaparin 40 mg Syringe SC SCH (11:08)
--- NOTE | 2018-09-10 12:24 | CP.PCM.PN ---
Subjective - Date & Time of Evaluation Date of Evaluation: 09/10/18 Time of Evaluation: 09:50 - Subjective Subjective: Comfortable in bed, cough is much improved, no fevers, no SOB at rest, no nausea, no diarrhea. Objective - Vital Signs/Intake and Output Vital Signs (last 24 hours): Temp Pulse Resp BP Pulse Ox 98.5 F 60 20 102/56 L 98 09/10/18 06:00 09/10/18 06:00 09/10/18 06:00 09/10/18 06:00 09/10/18 06:00 - Medications Medications: Current Medications Acetaminophen (Tylenol 325mg Tab) 650 mg PO Q4H PRN PRN Reason: pain fever Last Admin: 09/09/18 10:39 Dose: 650 mg Acetylcysteine (Acetylcysteine 20%) 4 ml IH BIDRESP [facility] Last Admin: 09/10/18 07:37 Dose: Not Given Albuterol/Ipratropium (Duoneb 3 Mg/0.5 Mg (3 Ml) Ud) 3 ml IH [id number] [facility] Last Admin: 09/10/18 07:37 Dose: Not Given Azithromycin (Zithromax) 500 mg PO DAILY [facility]; Protocol Stop: 09/14/18 10:01 Last Admin: 09/10/18 11:07 Dose: 500 mg Benzonatate (Tessalon Perles) 100 mg PO TID [facility] Last Admin: 09/10/18 11:07 Dose: 100 mg Budesonide (Pulmicort Respules) 0.5 mg IH [id number] [facility] Last Admin: 09/10/18 07:37 Dose: Not Given Enoxaparin Sodium (Lovenox) 40 mg SC DAILY [facility]; Protocol Last Admin: 09/10/18 11:08 Dose: Not Given Famotidine (Pepcid) 40 mg PO HS [facility] Last Admin: 09/09/18 23:21 Dose: 40 mg Ceftriaxone Sodium (Rocephin 1 Gram Ivpb) 1 gm in 100 mls @ 100 mls/hr IVPB DAILY [facility]; Protocol Stop: 09/11/18 10:59 Last Admin: 09/10/18 11:07 Dose: 100 mls/hr Loratadine (Claritin) 10 mg PO DAILY [facility] Last Admin: 09/10/18 11:07 Dose: 10 mg Montelukast Sodium (Singulair) 10 mg PO HS [facility] Last Admin: 09/09/18 23:22 Dose: 10 mg Ondansetron HCl (Zofran Tab) 4 mg PO Q8H [facility] Last Admin: 09/10/18 06:28 Dose: Not Given - Labs Labs: 09/08/18 07:30 09/08/18 07:30 - Constitutional Appears: Chronically Ill - Head Exam Head Exam: NORMAL INSPECTION - Respiratory Exam Respiratory Exam: Decreased Breath Sounds - Cardiovascular Exam Cardiovascular Exam: +S1, +S2 - GI/Abdominal Exam GI & Abdominal Exam: Soft. absent: Tenderness Assessment and Plan - Assessment and Plan (Free Text) Plan: Assessment multifocal community-acquired pneumonia, clinically improving asymptomatic bacteriuria with Corynebacterium pituitary tumor depression dyslipidemia Plan on Rocephin and Zithromax day 3 - when ready to be discharged, she can be switched to PO Levaquin 750 mg daily for another 3-4 days HIV test is non-reactive blood cx are negative recommend patient to follow up with PMD as an outpatient and recommend repeat CXR done by PMD as outpatient
--- NOTE | 2018-09-10 14:12 | PN ---
DATE: 09/10/2018 PULMONARY PROGRESS NOTE REFERRING PHYSICIAN: Marlin Puckett MD. SUBJECTIVE: The patient is sitting up at bedside. No acute distress. No overnight events reported. The patient reports feeling well today. No coughing, no shortness of breath, chest pain, abdominal pain, nausea, vomiting, diarrhea, leg pain or leg swelling reported. OBJECTIVE: GENERAL: No acute distress. VITAL SIGNS: Blood pressure 102/56, pulse 60, temperature 98.5, oxygen saturation 98% on room air. HEENT: Moist mucous membranes. NECK: Supple. No JVD. RESPIRATORY: Few rhonchi. CARDIOVASCULAR: S1, S2 audible. ABDOMEN: Soft, nontender. No distention. No organomegaly. EXTREMITIES: No bilateral lower extremity edema. NEUROLOGIC: Awake, alert, and verbal. Follows commands. MEDICATIONS: Reviewed. Tylenol 650 mg every 4 hours p.r.n., Mucomyst 4 mL inhalation twice a day, Duoneb 3 mL inhalation every 6 hours, Zithromax 500 mg daily, Tessalon Perles 100 mg three times a day, Pulmicort 0.5 mg inhalation every 12 hours, cefepime 1 g daily, Lovenox 40 mg subcutaneous daily, Pepcid 40 mg at bedtime, Claritin 10 mg daily, Singulair 10 mg at bedtime, Zofran 4 mg every 8 hours. LABORATORY DATA: Reviewed. Procalcitonin less than 0.05. Blood cultures preliminary, no growth after three days. Chest x-ray shows previously noted atelectasis and/or infiltrate changes left lung base and to a lesser degree right middle lobe presumably have improved. 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 No evidence of acute pathology in the brain parenchyma. Abdominopelvic CT showed foci or air space opacities in the left lower lobe and right middle lobe noted, may represent infectious process versus atelectasis. Low attenuation cystic structure noted in the mid abdomen to the right of the midline of uncertain etiology. Mild constipation. IMPRESSION AND PLAN: The patient with multifocal infiltrates, negative procalcitonin level. The patient stated that she was around multiple people at her job who were sick, could be viral pneumonia. We do not believe it is bacterial pneumonia, as procalcitonin level was negative. The patient is clinically doing better. Continue antibiotic therapy per Infectious Disease, inhaled bronchodilators, cough suppressant, deep venous thrombosis prophylaxis, gastric prophylaxis. The patient will need followup CT of the chest as outpatient or inpatient to follow up on infiltrates. Will need full pulmonary function test as outpatient. Seen and examined with Dr. Major. Discussed assessment and plan as described above. Thank you for this consult. We will follow with you. Lit Agarwal APN Antonietta Major MD
[2018-09-10 15:12] VITALS: BP 110/72; PULSE 72; RESP 18; TEMP 98.2
== END 2018-09-10 17:30 | disposition home or self-care (01) | DRG 194 ==
LOC: ED 14:47 → ERH 18:02 → 5RSO 20:25
PROVIDERS: ADMIT Internal Medicine; ATTEND Internal Medicine
PROC: 3E0F7GC Introduction of Other Therapeutic Substance into Respiratory Tract, Via Natural or Artificial Opening (ICD-10-PCS; principal; 2018-09-07)
DX: J18.9 Pneumonia, unspecified organism (principal); N39.0 Urinary tract infection, site not specified; D35.2 Benign neoplasm of pituitary gland; E78.00 Pure hypercholesterolemia, unspecified; D64.9 Anemia, unspecified; Z87.891 Personal history of nicotine dependence

== ENCOUNTER 2018-09-27 17:13 | Outpatient (CLI) | payer BC | END 2018-09-27 17:14 | disposition home or self-care (01) | LOC: RAD 17:13 | DX: J18.9 Pneumonia, unspecified organism (principal) ==